=== PATIENT | male | born 2000 | race Caucasian/White ===

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

== ENCOUNTER 2023-10-01 14:53 | Emergency (ER) | payer BC, OTHER ==
[2023-10-01 17:42] VITALS: BP 137/78; PULSE 78
== END 2023-10-01 17:41 | disposition home or self-care (01) ==
LOC: MW.ED 14:53
DX: M76.62 Achilles tendinitis, left leg (principal); F17.210 Nicotine dependence, cigarettes, uncomplicated; Z86.16 Personal history of COVID-19; Z79.899 Other long term (current) drug therapy
CPT/HCPCS: 73630-26-LT; 73630-LT; 99283